=== PATIENT | female | born 1970 | race Caucasian/White ===

== ENCOUNTER → 2016-08-05 | Outpatient (CLI) | payer BC, MEDICARE, OTHER | LOC: KOH-I 14:50 | DX: M54.5 Low back pain (principal); M54.6 Pain in thoracic spine; M47.894 Other spondylosis, thoracic region; M47.896 Other spondylosis, lumbar region | CPT/HCPCS: 72070; 72110 ==

== ENCOUNTER 2021-03-19 12:14 | Emergency (ER) | payer MEDICARE, OTHER | END 2021-03-19 18:40 | disposition left against medical advice (07) | LOC: ER1 12:14 | DX: R05.9 Cough, unspecified (principal); R52 Pain, unspecified; I10 Essential (primary) hypertension; Z90.710 Acquired absence of both cervix and uterus; Z88.5 Allergy status to narcotic agent | CPT/HCPCS: 99282 ==

== ENCOUNTER → 2021-12-10 | Outpatient (CLI) | payer MEDICARE | LOC: KOH-I 14:02 | DX: M79.651 Pain in right thigh (principal); M76.9 Unspecified enthesopathy, lower limb, excluding foot | CPT/HCPCS: 73552 ==